=== PATIENT | female | born 1970 | race African-American/Black ===

== ENCOUNTER 2016-08-02 09:10 | Emergency (ER) | payer SELFPAY ==
[~2016-08-02] VITALS: Ht 160 cm; Wt 66.7 kg
[2016-08-02 09:34] VITALS: BP 203/117
[2016-08-02] MEDS ORDERED: HYDR12.58 PO (09:40)
[2016-08-02] MEDS ORDERED: HYDR12.53 PO (10:00)
--- NOTE | 2016-08-02 10:00 | PHYS DOC ---
Past Medical History Past Medical History: DVT, Hypertension Past Surgical History: Cholecystectomy, Hysterectomy Additional Past Surgical Histo: heart cath, bilat hand surgery Alcohol Use: Occasionally Drug Use: None Social History Narrative: denies Adult General Chief Complaint Chief Complaint: Neck Pain HPI HPI Patient is a 46 year old female presents to the emergency department stating that she felt as though her throat was swollen earlier this morning. She states when she woke up she had a very dry throat was having some difficulty swallowing. She does state she's been having some nasal congestion. She denies fever, chills or any nausea vomiting. Patient does have a history of high blood pressure blood pressure is elevated at this time. She states that she has not taken her medicine for at least 4 months because she has been out of it. Patient states that she does not have a primary care and to follow-up with. Patient denies any headaches, blurred vision, chest pain, shortness of air or any difficulty breathing. Review of Systems Review of Systems Constitutional: Denies fever or chills [] Eyes: Denies change in visual acuity, redness, or eye pain [] HENT: nasal congestion and sore throat [] Respiratory: Denies cough or shortness of breath [] Cardiovascular: No additional information not addressed in HPI [] GI: Denies abdominal pain, nausea, vomiting, bloody stools or diarrhea [] : Denies dysuria or hematuria [] Musculoskeletal: Denies back pain or joint pain [] Integument: Denies rash or skin lesions [] Neurologic: Denies headache, focal weakness or sensory changes [] Endocrine: Denies polyuria or polydipsia [] Allergies Allergies Allergies Coded Allergies Type Severity Reaction Last Updated Verified coconut Allergy Intermediate swelling 08/02/16 Yes corn Allergy Intermediate swelling 08/02/16 Yes Physical Exam Physical Exam Constitutional: Well developed, well nourished, no acute distress, non-toxic appearance. [] HENT: Normocephalic, atraumatic, bilateral external ears normal, oropharynx moist, no oral exudates, nose normal. Bilateral tympanic membranes appear to be normal. Throat with no erythematous no exudate no redness noted no swelling noted in the throat area. Patient does have bilateral anterior cervical lymphadenopathy. Eyes: PERRLA, EOMI, conjunctiva normal, no discharge. [] Neck: Normal range of motion, no tenderness, supple, no stridor. [] Cardiovascular:Heart rate regular rhythm, no murmur [] Lungs & Thorax: Bilateral breath sounds clear to auscultation [] Skin: Warm, dry, no erythema, no rash. [] Back: No tenderness Extremities: No tenderness, no cyanosis, no clubbing, ROM intact, no edema. [] Neurologic: Alert and oriented X 3, normal motor function, normal sensory function, no focal deficits noted. [] Psychologic: Affect normal, judgement normal, mood normal. [] Current Patient Data Vital Signs Vital Signs Date Time Temp Pulse Resp B/P (MAP) Pulse Ox O2 Delivery O2 Flow Rate FiO2 08/02/16 09:34 98.2 91 18 203/117 (145) 99 Room Air 98.2 EKG EKG [] Radiology/Procedures Radiology/Procedures [] Course & Med Decision Making Course & Med Decision Making Pertinent Labs and Imaging studies reviewed. (See chart for details) Patient will be provided with her hydrochlorothiazide prescription. Encouraged to take Coricidin HBP [id number] for her upper respiratory congestion. Patient will be provided with a doctor's list to help her obtain a primary care physician. Patient will be discharged home in stable condition signs symptoms to return back to emergency department been provided. Patient agrees with discharge instructions treatment regimen and follow-up recommendations. [] Dragon Disclaimer Dragon Disclaimer This electronic medical record was generated, in whole or in part, using a voice recognition dictation system. Departure Departure Impression: Primary Impression: Hypertension Additional Impression: Upper respiratory infection Disposition: 01 HOME, SELF-CARE Condition: STABLE Referrals: NON,STAFF (PCP) Patient Instructions: Hypertension, Upper Respiratory Infection, Adult, Easy-to -Read Additional Instructions: Your blood pressure was elevated here in the emergency department. It is recommended that you monitor your blood pressure and take your medications as prescribed. Hydrochlorothiazide as prescribed daily. Coricidin HBP may be taken for your upper respiratory congestion. Encourage plenty of fluids. Follow-up to a primary care physician in the next week. Return back to emergency prior signs symptoms of become worse. Scripts Hydrochlorothiazide (HYDROCHLOROTHIAZIDE CAPSULE ) 12.5 Mg Capsule 1 CAP PO DAILY, #30 CAP 0 Refills Prov: BARBIE MAGANA APRN 08/02/16 Problem Qualifiers BARBIE MAGANA APRN August 02, 2016 10:00
== END 2016-08-02 10:10 | disposition home or self-care (01) ==
LOC: ER 10:02
DX: J06.9 Acute upper respiratory infection, unspecified (principal); I10 Essential (primary) hypertension; Z86.718 Personal history of other venous thrombosis and embolism; Z91.018 Allergy to other foods
CPT/HCPCS: 99283